=== PATIENT | female | born 1985 | race Caucasian/White ===

== ENCOUNTER 2018-04-13 08:58 | Emergency (ER) | payer BC ==
[2018-04-13 10:07] LABS: Urine Blood 1+ (NEG); Urine Glucose NEGATIVE (NEG); Urine Protein 2+ (NEG)
--- NOTE | 2018-04-13 10:28 | ER ---
Nurse's Notes [facility] Name: Woodrow Pool Age: 32 yrs Sex: Female : 1985 Arrival Date: 04/13/2018 Time: 09:01 Bed 13 Private MD: Elissa Chaudhary Diagnosis: Threatened Presentation: 04/13 09:17 Presenting complaint: Patient states: Lower abdominal cramping and bright red vaginal hb bleeding since this morning. Pt reports she is 11 weeks , , had spotty bleeding at 8 and [address] Chaudhary. Transition of care: patient was not received from another setting of care. Onset of symptoms was April 13, 2018. Risk Assessment: Do you want to hurt yourself or someone else? Patient reports no desire to harm self or others. 09:17 Method Of Arrival: Ambulatory hb 09:17 Acuity: DESHAWN 3 hb 10:00 Initial Sepsis Screen: Does the patient meet any 2 criteria? No. Patient's initial jl7 sepsis screen is negative. Does the patient have a suspected source of infection? No. Patient's initial sepsis screen is negative. Care prior to arrival: None. 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 - Social history:: Smoking status: Patient/guardian denies using tobacco. - Ebola Screening: : No symptoms or risks identified at this time. Screenin:00 Abuse screen: Denies threats or abuse. Denies injuries from another. Nutritional jl7 screening: No deficits noted. Tuberculosis screening: No symptoms or risk factors identified. Fall Risk None identified. Assessment: 10:00 Obstetrical Assessment: Patient reports abdominal cramping. jl7 10:02 General: Appears uncomfortable, Behavior is cooperative, appropriate for age, anxious. jl7 Pain: Complains of pain in suprapubic area, right lower quadrant and left lower quadrant Pain does not radiate. Pain currently is 4 out of 10 on a pain scale. Quality of pain is described as crampy, Pain began 2-3 days ago. Is continuous. Neuro: Level of Consciousness is awake, alert, obeys commands, Oriented to person, place, time, situation. Cardiovascular: Patient's skin is warm and dry. Respiratory: Airway is patent Respiratory effort is even, unlabored, Respiratory pattern is regular, symmetrical. GI: No signs and/or symptoms were reported involving the gastrointestinal system. : Urine is clear, Reports vaginal bleeding that is bright red. Vital Signs: 09:19 BP 127 / 99; Pulse 110; Resp 16; Pulse Ox 100% on R/A; Pain 0/10; hb 10:45 BP 125 / 95; Pulse 104; Resp 16; Pulse Ox 100% ; jl7 ED Course: 09:01 Patient arrived in ED. as 09:01 Elissa Chaudhary MD is Private Physician. as 09:07 Emily Leon FNP-C [facility]. snw 09:07 Quintin Easley MD is Attending Physician. snw 09:19 Triage completed. hb 09:33 Rosy Frye, RN is Primary Nurse. jl7 09:46 Radiology exam delayed due to lab results not completed at this time. test aa4 not completed at this time. 10:00 Patient has correct armband on for positive identification. Bed in low position. Call jl7 light in reach. Side rails up X 1. Pulse ox on. NIBP on. 10:17 Ultrasound completed. aa4 10:21 Elissa Chaudhary MD is Referral Physician. snw 10:38 1St Trimest Single 1St Fetus In Process Unspecified. EDMS 10:44 Arm band placed on right wrist. jl7 10:48 No provider procedures requiring assistance completed. Patient did not have IV access jl7 during this emergency room visit. Administered Medications: No medications were administered Point of Care Testing: Urine : 10:48 hCG Reading: Positive; Control Reading: Negative; jl7 Outcome: 10:27 Discharge ordered by . snw 10:48 Discharged to home ambulatory. jl7 10:48 Condition: stable 10:48 Discharge instructions given to patient, family, Instructed on discharge instructions, follow up and referral plans. medication usage, Demonstrated understanding of instructions, follow-up care, medications, Prescriptions given X 1. 10:49 Patient left the ED. jl7 Signatures: Dispatcher [employer] EDOH Emily Leon FNP-C SHIPFITTERS SUPERVISOR-Ana Maldonado Amanda aa4 Antonia Felder, RN RN hb Rosy Frye RN RN jl7 Corrections: (The following items were deleted from the chart) 10:38 10:17 In radiology for Transvaginal Ob+US.RAD.KANDACE. EDMS EDMS
--- NOTE | 2018-04-13 10:28 | EDPHYS ---
Physician Documentation [facility] Name: Woodrow Pool Age: 32 yrs Sex: Female : 1985 Arrival Date: 04/13/2018 Time: 09:01 Bed 13 Private MD: Elissa Chaudhary ED Physician Quintin Easley HPI: 04/13 09:41 This 32 yrs old Female presents to ER via Ambulatory with complaints of snw Vaginal Bleeding, + Preg <12wks. 09:41 The patient presents with vaginal bleeding that is light, "bright red" when I wiped. snw Onset: The symptoms/episode began/occurred suddenly, this morning. Associated signs and symptoms: Pertinent positives: vaginal bleeding. Severity of symptoms: At their worst the symptoms were mild. The patient is sexually active, reportedly has a single partner. The patient has experienced a previous episode. The patient has been recently seen by a physician: Dr. Jeffries with similar presenting complaints, +IUP with HR in 140's, Rh +,. FINAL INSPECTOR PAPER: 09:41 1 snw Historical: - Allergies: 09:19 No Known Allergies; hb - Home Meds: 09:19 Lovenox 40 mg/0.4 mL Sub-Q syrg once daily [Active]; hb - Immunization history:: Adult Immunizations unknown. - Social history:: Smoking status: Patient/guardian denies using tobacco. - Ebola Screening: : No symptoms or risks identified at this time. ROS: 09:40 Constitutional: Negative for fever, chills, and weight loss, Eyes: Negative for injury, snw pain, redness, and discharge, ENT: Negative for injury, pain, and discharge, Neck: Negative for injury, pain, and swelling, Cardiovascular: Negative for chest pain, palpitations, and edema, Respiratory: Negative for shortness of breath, cough, wheezing, and pleuritic chest pain, Abdomen/GI: Negative for abdominal pain, nausea, vomiting, diarrhea, and constipation, Back: Negative for injury and pain, MS/Extremity: Negative for injury and deformity, Skin: Negative for injury, rash, and discoloration, Neuro: Negative for headache, weakness, numbness, tingling, and seizure. 09:40 : Positive for vaginal bleeding. 09:40 Psych: Positive for anxiety. Exam: 09:39 Constitutional: This is a well developed, well nourished patient who is awake, alert, snw and in no acute distress. Head/Face: Normocephalic, atraumatic. Eyes: Pupils equal round and reactive to light, extra-ocular motions intact. Lids and lashes normal. Conjunctiva and sclera are non-icteric and not injected. Cornea within normal limits. Periorbital areas with no swelling, redness, or edema. ENT: Nares patent. No nasal discharge, no septal abnormalities noted. Tympanic membranes are normal and external auditory canals are clear. Oropharynx with no redness, swelling, or masses, exudates, or evidence of obstruction, uvula midline. Mucous membranes moist. Neck: Trachea midline, no thyromegaly or masses palpated, and no cervical lymphadenopathy. Supple, full range of motion without nuchal rigidity, or vertebral point tenderness. No Meningismus. Chest/axilla: Normal chest wall appearance and motion. Nontender with no deformity. No lesions are appreciated. Cardiovascular: Tachycardic rate and rhythm with a normal S1 and S2. No gallops, murmurs, or rubs. Normal PMI, no JVD. No pulse deficits. Respiratory: Lungs have equal breath sounds bilaterally, clear to auscultation and percussion. No rales, rhonchi or wheezes noted. No increased work of breathing, no retractions or nasal flaring. Abdomen/GI: Soft, non-tender, with normal bowel sounds. No distension or tympany. No guarding or rebound. No evidence of tenderness throughout. Back: No spinal tenderness. No costovertebral tenderness. Full range of motion. Skin: Warm, dry with normal turgor. Normal color with no rashes, no lesions, and no evidence of cellulitis. MS/ Extremity: Pulses equal, no cyanosis. Neurovascular intact. Full, normal range of motion. Neuro: Awake and alert, GCS 15, oriented to person, place, time, and situation. Cranial nerves II-XII grossly intact. Motor strength 5/5 in all extremities. Sensory grossly intact. Cerebellar exam normal. Normal gait. Vital Signs: 09:19 BP 127 / 99; Pulse 110; Resp 16; Pulse Ox 100% on R/A; Pain 0/10; hb 10:45 BP 125 / 95; Pulse 104; Resp 16; Pulse Ox 100% ; jl7 MDM: 09:14 Patient medically screened. snw 09:54 Data reviewed: vital signs, nurses notes. Physician consultation: Elissa Chaudhary MD was snw called at 09:55, was contacted at 09:55, regarding Dr. Chaudhary called, pt does not need labs, US ordered. Pt was seen Wednesday, + IUP with HR 140's, . 04/13 10:03 Order name: Urine Dipstick--Ancillary (enter results); Complete Time: 10:12 bd 04/13 10:04 Order name: Urine --Ancillary (enter results); Complete Time: 10:12 bd 04/13 09:07 Order name: Urine Test (obtain specimen); Complete Time: 10:33 snw 04/13 09:07 Order name: IV Saline Lock; Complete Time: 10:33 snw 04/13 09:07 Order name: Labs collected and sent; Complete Time: 10:33 snw 04/13 09:07 Order name: NPO; Complete Time: 10:33 snw 04/13 09:07 Order name: Urine Dipstick-Ancillary (obtain specimen); Complete Time: 10:33 snw 04/13 10:38 Order name: 1St Trimest Single 1St Fetus; Complete Time: 10:46 EDMS Administered Medications: No medications were administered Point of Care Testing: Urine : 10:48 hCG Reading: Positive; Control Reading: Negative; jl7 Disposition: 04/13/18 10:27 Discharged to Home. Impression: Threatened . - Condition is Stable. - Discharge Instructions: Medicines During , Threatened Miscarriage, Pelvic Rest. - Prescriptions for Vitamin 27- 0.8 mg Oral Tablet - take 1 tablet by ORAL route once daily; 60 tablet. - Medication Reconciliation Form, Thank You Letter, Antibiotic Education, Prescription Opioid Use form. - Follow up: Elissa Chaudhary MD; When: 2 - 3 days; Reason: Recheck today's complaints, Continuance of care, Re-evaluation by your physician. Follow up: Emergency Department; When: As needed; Reason: Worsening of condition. Addendum: 04/15/2018 19:50 Co-signature as Attending Physician, Quintin Easley MD I agree with the assessment and w a plan of care. Signatures: Dispatcher [employer] EDEmily Rodriguez, CHILD CARE ATTENDANT SCHOOL-C CHILD CARE ATTENDANT SCHOOL-Csnw Antonia Felder, CLARITA RN hb Rosy Frye, CLARITA RN jl7 Quintin Easley MD MD wa Corrections: (The following items were deleted from the chart) 04/13 09:40 09:39 Constitutional: This is a well developed, well nourished patient who is awake, snw alert, and in no acute distress. Head/Face: Normocephalic, atraumatic. Eyes: Pupils equal round and reactive to light, extra-ocular motions intact. Lids and lashes normal. Conjunctiva and sclera are non-icteric and not injected. Cornea within normal limits. Periorbital areas with no swelling, redness, or edema. ENT: Nares patent. No nasal discharge, no septal abnormalities noted. Tympanic membranes are normal and external auditory canals are clear. Oropharynx with no redness, swelling, or masses, exudates, or evidence of obstruction, uvula midline. Mucous membranes moist. Neck: Trachea midline, no thyromegaly or masses palpated, and no cervical lymphadenopathy. Supple, full range of motion without nuchal rigidity, or vertebral point tenderness. No Meningismus. Chest/axilla: Normal chest wall appearance and motion. Nontender with no deformity. No lesions are appreciated. Cardiovascular: Regular rate and rhythm with a normal S1 and S2. No gallops, murmurs, or rubs. Normal PMI, no JVD. No pulse deficits. Respiratory: Lungs have equal breath sounds bilaterally, clear to auscultation and percussion. No rales, rhonchi or wheezes noted. No increased work of breathing, no retractions or nasal flaring. Abdomen/GI: Soft, non-tender, with normal bowel sounds. No distension or tympany. No guarding or rebound. No evidence of tenderness throughout. Back: No spinal tenderness. No costovertebral tenderness. Full range of motion. Skin: Warm, dry with normal turgor. Normal color with no rashes, no lesions, and no evidence of cellulitis. MS/ Extremity: Pulses equal, no cyanosis. Neurovascular intact. Full, normal range of motion. Neuro: Awake and alert, GCS 15, oriented to person, place, time, and situation. Cranial nerves II-XII grossly intact. Motor strength 5/5 in all extremities. Sensory grossly intact. Cerebellar exam normal. Normal gait. snw 09:41 09:07 QUANTITATIVE HCG+C.LAB.BRZ ordered. EDMS EDMS 09:41 09:08 ABO/RH TYPING+BB.LAB.BRZ ordered. EDMS EDMS 09:41 09:08 BASIC METABOLIC PANEL+C.LAB.BRZ ordered. EDMS EDMS 09:41 09:08 CBC+H.LAB.BRZ ordered. EDMS EDMS 10:38 09:39 Transvaginal Ob+US.RAD.BRZ ordered. EDMS EDMS 10:49 10:27 04/13/2018 10:27 Discharged to Home. Impression: Threatened . Condition jl7 is Stable. Forms are Medication Reconciliation Form, Thank You Letter, Antibiotic Education, Prescription Opioid Use. Follow up: [facility]; When: 2 - 3 days; Reason: Recheck today's complaints, Continuance of care, Re-evaluation by your physician. Follow up: Emergency Department; When: As needed; Reason: Worsening of condition. snw
--- NOTE | 2018-04-13 10:46 | RAD REPORT ---
EXAM DESCRIPTION: US - 1St Trimest Single 1St Fetus - 04/13/2018 10:38 am CLINICAL HISTORY: , vaginal bleeding. Preliminary findings provided to the referring clinician at the time of the study. COMPARISON: None. FINDINGS: Transabdominal sonography was performed. A single intrauterine gestation is identifiable. Heart rate is 172 BPM. [place]-rump length measurements correspond 12 week 0 day age. No gross an atomic abnormality identifiable. Calculated FABBY is 10/26/2018. Cervical canal appears closed. No cy mabel or other intrauterine abnormality identifiable. Bilateral adnexa assessment showed no solid or cystic mass. Ovaries were not clearly defined. There i s no blood or fluid in the cul-de-sac. IMPRESSION: Single 12 week 0 day IUP with normal heart rate. Calculated FABBY is 10/26/2018 Cervical canal is closed. No hematoma or other intrauterine abnormality. No cul-de-sac or adnexal abnormality.
== END 2018-04-13 10:49 | disposition home or self-care (01) ==
LOC: ER 08:58
DX: O20.0 Threatened abortion (principal); Z3A.00 Weeks of gestation of pregnancy not specified
CPT/HCPCS: 76801; 81003; 81025; 99283

== ENCOUNTER 2018-05-14 05:44 | Emergency (ER) | payer BC ==
[2018-05-14 06:47] LABS: Absolute Lymphocytes (CBC) 1.6 K/uL (0.7-4.9); Absolute Monocytes 0.4 K/uL (0.1-1.3); Absolute Neutrophil 6.4 K/uL (1.8-8.0); Basophils % 0.4 % (0-1.3); Eosinophils % 3.6 % (0-4.4); Hematocrit 37.8 % (36.0-45.0); Lymphocytes % 18.1 % (15.3-44.8); MCH 28.7 pg (27.0-35.0); MCV 84.8 fL (80-100); MPV 10.4 fL (7.6-11.3); Monocytes % 4.3 % (3.3-12.3); RBC Red Blood Cell Count 4.46 M/uL (3.86-4.86)
[2018-05-14 07:14] LABS: BUN Blood Urea Nitrogen 7 mg/dL (7-18); Bicarbonate 26 mmol/L (21-32); Glucose Level 87 mg/dL (74-106); HCG, Quantitative 17271 mIU/mL (1-3); Potassium 3.6 mmol/L (3.5-5.1); Sodium Level 140 mmol/L (136-145)
[2018-05-14 07:22] LABS: Urine Blood 2+ (NEG); Urine Glucose NEGATIVE (NEG); Urine Protein NEGATIVE (NEG); Urine Specific Gravity 1.015 (1.005-1.030)
--- NOTE | 2018-05-14 08:27 | ER ---
Nurse's Notes [facility] Name: Woodrow Pool Age: 32 yrs Sex: Female : 1985 Arrival Date: 05/14/2018 Time: 05:45 Bed 16 Private MD: Diagnosis: 16 weeks gestation of Presentation: 05/14 06:01 Presenting complaint: Patient states: Pt reports she woke up at 0530 this morning and ea noticed she had light cramping and bleeding. Pt reports at 11 weeks she came in for similar symptoms but reports this time the bleeding is more severe. Transition of care: patient was not received from another setting of care. Onset of symptoms was May 14, 2018. Risk Assessment: Do you want to hurt yourself or someone else? Patient reports no desire to harm self or others. Initial Sepsis Screen: Does the patient meet any 2 criteria? No. Patient's initial sepsis screen is negative. Does the patient have a suspected source of infection? No. Patient's initial sepsis screen is negative. Care prior to arrival: None. 06:01 Method Of Arrival: Ambulatory ea 06:01 Acuity: DESHAWN 3 ea Triage Assessment: 06:05 General: Appears uncomfortable, Behavior is calm, cooperative, appropriate for age. ea Pain: Denies pain. EENT: No signs and/or symptoms were reported regarding the EENT system. Neuro: Level of Consciousness is awake, alert, obeys commands, Oriented to person, place, time, situation. Cardiovascular: Heart tones S1 S2 present Patient's skin is warm and dry. Respiratory: Airway is patent Respiratory effort is even, unlabored, Respiratory pattern is regular, symmetrical, Breath sounds are clear bilaterally. GI: No signs and/or symptoms were reported involving the gastrointestinal system. : Reports vaginal bleeding that is moderate flow. Derm: Skin is pink, warm \T\ dry. Musculoskeletal: No signs and/or symptoms reported regarding the musculoskeletal system. LOCK SETTER: 06:07 1, Full Term 0, Premature 0, 0, Living 0 ea 06:07 1, 0, Living 0 kb 06:15 LMP 01/22/2018 kb Historical: - Allergies: 06:04 No Known Allergies; ea - Home Meds: 06:04 Lovenox 40 mg/0.4 mL Sub-Q syrg once daily [Active]; ea - PMHx: 08:03 antiphospholipid syndrome; kb - PSHx: 06:04 hysteroscopy; ea - Immunization history:: Adult Immunizations up to date. - Social history:: Smoking status: Patient/guardian denies using tobacco. - Ebola Screening: : No symptoms or risks identified at this time. Screenin:09 Abuse screen: Denies threats or abuse. Nutritional screening: No deficits noted. ea Tuberculosis screening: No symptoms or risk factors identified. Fall Risk None identified. Assessment: 06:42 Reassessment: Patient and/or family updated on plan of care and expected duration. Pain ea level reassessed. Patient is alert, oriented x 3, equal unlabored respirations, skin warm/dry/pink. heart tones 160. 07:05 General: Appears in no apparent distress. comfortable, Behavior is calm, cooperative. em Pain: Denies pain. Neuro: Level of Consciousness is awake, alert, obeys commands, Oriented to person, place, time, situation. Cardiovascular: Capillary refill < 3 seconds Patient's skin is warm and dry. Respiratory: Airway is patent Respiratory effort is even, unlabored, Respiratory pattern is regular, symmetrical. GI: Patient currently denies nausea, vomiting. : No signs and/or symptoms were reported regarding the genitourinary system. : Reports vaginal bleeding that is since 0530 today. : Denies. Derm: Skin is intact, Skin is pink, warm \T\ dry. Musculoskeletal: Range of motion: intact in all extremities. 08:30 Reassessment: Patient appears in no apparent distress at this time. Patient and/or em family updated on plan of care and expected duration. Pain level reassessed. Patient is alert, oriented x 3, equal unlabored respirations, skin warm/dry/pink. Vital Signs: 06:07 BP 120 / 86; Pulse 101; Resp 18; Temp 98(O); Pulse Ox 98% on R/A; Weight 65.32 kg; ea Height 5 ft. 2 in. (157.48 cm); 07:22 BP 95 / 70; Pulse 79; Resp 18; Pulse Ox 99% on R/A; Pain 0/10; em 08:30 BP 112 / 71; Pulse 73; Resp 18; Pulse Ox 99% on R/A; Pain 0/10; em 06:07 Body Mass Index 26.34 (65.32 kg, 157.48 cm) ED Course: 05:45 Patient arrived in ED. ds1 06:00 Gina Briones FNP-C [facility]. kb 06:00 Sohail Plummer MD is Attending Physician. kb 06:01 Tracie Salinas, RN is Primary Nurse. ea 06:03 Triage completed. ea 06:09 Patient has correct armband on for positive identification. Bed in low position. Call ea light in reach. Side rails up X 1. 06:09 Arm band placed on right wrist. Patient placed in an exam room, on a stretcher, on ea pulse oximetry. 06:50 Inserted saline lock: 20 gauge in right antecubital area, using aseptic technique. em Blood collected. 08:00 Ultrasound completed. Patient tolerated well. sg3 08:00 Notified SOFA INSPECTOR/PA gina bonilla us prelim. sg3 08:26 Elissa Chaudhary MD is Referral Physician. kb 08:30 US OB Complete In Process Unspecified. EDMS 08:50 No provider procedures requiring assistance completed. IV discontinued, intact, em bleeding controlled, No redness/swelling at site. Pressure dressing applied. Administered Medications: No medications were administered Outcome: 08:26 Discharge ordered by MD. kb 08:51 Discharged to home ambulatory, with family. em 08:51 Condition: good 08:51 Discharge instructions given to patient, family, Instructed on discharge instructions, follow up and referral plans. Demonstrated understanding of instructions, follow-up care. 08:52 Patient left the ED. em Signatures: Dispatcher [employer] EDMS Gina Briones FNP-C BROOM STITCHER-Ckb Jabier Magdaleno, SALES REPRESENTATIVE [employer] SALES REPRESENTATIVE [employer] em Lara Jiménez ds1 Tracie Salinas, RN RN Vicenta Lagunas sg3 Corrections: (The following items were deleted from the chart) 08:03 06:04 PMHx: None; ea lewis
--- NOTE | 2018-05-14 08:27 | EDPHYS ---
Physician Documentation [facility] Name: Woodrow Pool Age: 32 yrs Sex: Female : 1985 Arrival Date: 05/14/2018 Time: 05:45 Bed 16 Private MD: ED Physician Sohail Plummer HPI: 05/14 06:07 This 32 yrs old Female presents to ER via Ambulatory with complaints of kb Vaginal Bleeding - 16 Wks Preg. 06:07 The patient presents to the emergency department with vaginal bleeding, that is light. kb The estimated gestational age is 16 weeks. course: care: private OB physician, Dr. Chaudhary, Leakage of Fluid: none appreciated, Ultrasound: the patient had an ultrasound, which was normal, Risk/complications: APS. Previous pregnancies: the patient has never been . Associated signs and symptoms: Pertinent positives: vaginal bleeding, Pertinent negatives: abdominal pain, chest pain, diarrhea, dysuria, fever, frequency, nausea, ruptured membranes, seizure, shortness of breath, vaginal discharge, vomiting. The patient has experienced similar episodes in the past, a few times, but today's symptoms are worse. The patient has been recently seen by a physician: Dr. Chaudhary 1 week(s) ago. Pt states she woke up at 0530 with vaginal bleeding. States the bleeding has lightened up, but still constant. Takes baby aspirin and lovenox (40mg) daily for APS. Saw Dr Chaudhary last week for regular OB checkup. Denies abd pain. . 06:15 Pt had IVF. kb DIRECTOR OF INDUSTRIAL RELATIONS: 06:07 1, Full Term 0, Premature 0, 0, Living 0 ea 06:07 1, 0, Living 0 kb 06:15 LMP 01/22/2018 kb Historical: - Allergies: 06:04 No Known Allergies; ea - Home Meds: 06:04 Lovenox 40 mg/0.4 mL Sub-Q syrg once daily [Active]; ea - PMHx: 08:03 antiphospholipid syndrome; kb - PSHx: 06:04 hysteroscopy; ea - Immunization history:: Adult Immunizations up to date. - Social history:: Smoking status: Patient/guardian denies using tobacco. - Ebola Screening: : No symptoms or risks identified at this time. ROS: 06:07 Constitutional: Negative for fever, chills, and weight loss, Cardiovascular: Negative kb for chest pain, palpitations, and edema, Respiratory: Negative for shortness of breath, cough, wheezing, and pleuritic chest pain, Abdomen/GI: Negative for abdominal pain, nausea, vomiting, diarrhea, and constipation, MS/Extremity: Negative for injury and deformity, Skin: Negative for injury, rash, and discoloration, Neuro: Negative for headache, weakness, numbness, tingling, and seizure. 06:07 : Positive for vaginal bleeding, Negative for urinary symptoms. Exam: 06:07 Constitutional: This is a well developed, well nourished patient who is awake, alert, kb and in no acute distress. Head/Face: Normocephalic, atraumatic. ENT: Nares patent. No nasal discharge, no septal abnormalities noted. Tympanic membranes are normal and external auditory canals are clear. Oropharynx with no redness, swelling, or masses, exudates, or evidence of obstruction, uvula midline. Mucous membranes moist. Neck: Trachea midline, no thyromegaly or masses palpated, and no cervical lymphadenopathy. Supple, full range of motion without nuchal rigidity, or vertebral point tenderness. No Meningismus. Chest/axilla: Normal chest wall appearance and motion. Nontender with no deformity. No lesions are appreciated. Cardiovascular: Regular rate and rhythm with a normal S1 and S2. No gallops, murmurs, or rubs. Normal PMI, no JVD. No pulse deficits. Respiratory: Lungs have equal breath sounds bilaterally, clear to auscultation and percussion. No rales, rhonchi or wheezes noted. No increased work of breathing, no retractions or nasal flaring. Abdomen/GI: Soft, non-tender, with normal bowel sounds. No distension or tympany. No guarding or rebound. No evidence of tenderness throughout. Skin: Warm, dry with normal turgor. Normal color with no rashes, no lesions, and no evidence of cellulitis. MS/ Extremity: Pulses equal, no cyanosis. Neurovascular intact. Full, normal range of motion. Neuro: Awake and alert, GCS 15, oriented to person, place, time, and situation. Cranial nerves II-XII grossly intact. Motor strength 5/5 in all extremities. Sensory grossly intact. Cerebellar exam normal. Normal gait. Vital Signs: 06:07 BP 120 / 86; Pulse 101; Resp 18; Temp 98(O); Pulse Ox 98% on R/A; Weight 65.32 kg; ea Height 5 ft. 2 in. (157.48 cm); 07:22 BP 95 / 70; Pulse 79; Resp 18; Pulse Ox 99% on R/A; Pain 0/10; em 08:30 BP 112 / 71; Pulse 73; Resp 18; Pulse Ox 99% on R/A; Pain 0/10; em 06:07 Body Mass Index 26.34 (65.32 kg, 157.48 cm) ea MDM: 06:00 Patient medically screened. kb 06:07 Data reviewed: vital signs, nurses notes. Data interpreted: Pulse oximetry: on room air kb is 100 %. Interpretation: normal. 08:17 Counseling: I had a detailed discussion with the patient and/or guardian regarding: the kb historical points, exam findings, and any diagnostic results supporting the discharge/admit diagnosis, lab results, radiology results, the need for outpatient follow up, an OB/Gyne specialist, to return to the emergency department if symptoms worsen or persist or if there are any questions or concerns that arise at home. 05/14 06:00 Order name: Quantitative Hcg; Complete Time: 07:15 kb 05/14 06:00 Order name: Abo/rh Typing; Complete Time: 08:48 kb 05/14 06:00 Order name: Basic Metabolic Panel; Complete Time: 07:15 kb 05/14 06:00 Order name: CBC with Diff; Complete Time: 06:51 kb 05/14 06:54 Order name: Urine Dipstick--Ancillary (enter results); Complete Time: 07:23 rg2 05/14 06:54 Order name: Urine --Ancillary (enter results); Complete Time: 07:23 rg2 05/14 06:00 Order name: Urine Test (obtain specimen); Complete Time: 07:14 kb 05/14 06:00 Order name: IV Saline Lock; Complete Time: 07:13 kb 05/14 06:00 Order name: Labs collected and sent; Complete Time: 07:13 kb 08 06:00 Order name: NPO; Complete Time: 07:14 kb 05/14 06:00 Order name: Urine Dipstick-Ancillary (obtain specimen); Complete Time: 07:14 kb 05/14 06:10 Order name: FHT's; Complete Time: 06:42 kb 05/14 06:52 Order name: US OB Complete kb Administered Medications: No medications were administered Disposition: 05/14/18 08:26 Discharged to Home. Impression: 16 weeks gestation of . - Condition is Stable. - Discharge Instructions: Second Trimester of , [id number]. - Medication Reconciliation Form, Thank You Letter, Antibiotic Education, Prescription Opioid Use form. - Follow up: Emergency Department; When: As needed; Reason: Worsening of condition. Follow up: Private Physician; When: 2 - 3 days; Reason: Recheck today's complaints, Continuance of care, Re-evaluation by your physician. Follow up: Elissa Chaudhary MD; When: 1 - 2 days; Reason: Recheck today's complaints, Continuance of care, Re-evaluation by your physician. Addendum: 05/16/2018 09:12 Co-signature as Attending Physician, Sohail Plummer MD I agree with the assessment and c valenzuela plan of care. Signatures: Dispatcher [employer] Gina Reyes, ROVING TECHNICIAN-C ROVING TECHNICIAN-Ckb Sohail Plummer MD MD cha Munoz, Edgar, DISK SANDER DISK SANDER em Tracie Salinas RN RN ea Corrections: (The following items were deleted from the chart) 05/14 08:03 06:04 PMHx: None; ea kb 08:26 08:26 05/14/2018 08:26 Discharged to Home. Impression: 16 weeks gestation of . kb Condition is Stable. Forms are Medication Reconciliation Form, Thank You Letter, Antibiotic Education, Prescription Opioid Use. Follow up: Emergency Department; When: As needed; Reason: Worsening of condition. Follow up: Private Physician; When: 2 - 3 days; Reason: Recheck today's complaints, Continuance of care, Re-evaluation by your physician. kb 08:52 08:26 05/14/2018 08:26 Discharged to Home. Impression: 16 weeks gestation of . em Condition is Stable. Discharge Instructions: Second Trimester of , [id number]. Forms are Medication Reconciliation Form, Thank You Letter, Antibiotic Education, Prescription Opioid Use. Follow up: Emergency Department; When: As needed; Reason: Worsening of condition. Follow up: Private Physician; When: 2 - 3 days; Reason: Recheck today's complaints, Continuance of care, Re-evaluation by your physician. Follow up: Elissa Rekhi; When: 1 - 2 days; Reason: Recheck today's complaints, Continuance of care, Re-evaluation by your physician. kb
--- NOTE | 2018-05-14 12:04 | RAD REPORT ---
EXAM DESCRIPTION: US - OB Complete - 05/14/2018 8:30 am CLINICAL HISTORY: with vaginal bleeding COMPARISON: None FINDINGS: A single live intrauterine is breech presentation. The placenta is posterior. Th e tip of the placenta lies 1.8 centimeters from the cervix. The amniotic fluid is within normal limit s. Cardiac activity 149 beats per minute. The cervix 3.3 centimeters. BPD 3.3 centimeters 16 weeks 3 days HC 12.7 centimeters 16 weeks 3 days AC 10.5 centimeters 16 weeks 3 days FL 2.2 centimeter 16 weeks 4 days survey was not obtained secondary to the early gestation. IMPRESSION: A single live into in breech presentation The estimated gestational age 16 weeks 3 days FABBY 10/26/2018 Low lying placenta If a survey is desired it should be performed in approximately 2 weeks
== END 2018-05-14 08:52 | disposition home or self-care (01) ==
LOC: ER 05:44
DX: O20.9 Hemorrhage in early pregnancy, unspecified (principal); Z3A.16 16 weeks gestation of pregnancy; D68.61 Antiphospholipid syndrome
CPT/HCPCS: 36415; 76805; 80048; 81003; 81025; 84702; 85025; 86900; 86901; 99284

== ENCOUNTER 2018-10-11 15:07 | Inpatient (IN) | payer BC ==
[2018-10-12] MEDS ORDERED: PROMETHAZINE 25 MG/ML VIAL IV PRN (08:01)
[2018-10-12] MEDS ORDERED: BUTORPHANOL 1 MG/ML INJ IV PRN (08:01)
[2018-10-12] MEDS ORDERED: CARBOPROST TROME 250 MCG/ML IM PRN (08:01)
[2018-10-12] MEDS ORDERED: METHYLERGONOVINE 0.2MG/ML AMP IM PRN (08:01)
[2018-10-12] MEDS ORDERED: Ringers Lactate 1,000 ML IV PRN (08:01)
[2018-10-12 08:25] LABS: RPR Titer ND
[2018-10-12] MEDS ORDERED: OXYTOCIN/LR 20 UNIT/1,000 ML BAG IV ONE (08:25)
[2018-10-12 08:28] LABS: Absolute Lymphocytes (CBC) 1.4 K/uL (0.7-4.9); Absolute Monocytes 0.5 K/uL (0.1-1.3); Absolute Neutrophil 7.7 K/uL (1.8-8.0); Basophils % 0.3 % (0-1.3); Eosinophils % 1.5 % (0-4.4); Hematocrit 35.9 % (36.0-45.0); Lymphocytes % 14.5 % (15.3-44.8); MPV 10.4 fL (7.6-11.3); Monocytes % 5.2 % (3.3-12.3); RBC Red Blood Cell Count 4.24 M/uL (3.86-4.86)
[2018-10-12 08:36] LABS: Urine Appearance CLEAR; Urine Bilirubin NEGATIVE (NEG); Urine Blood NEGATIVE (NEG); Urine Color YELLOW; Urine Glucose NEGATIVE (NEG); Urine Protein NEGATIVE (NEG); Urine Specific Gravity 1.015 (1.005-1.030); Urine Urobilinogen 0.2 mg/dL (0.2-1.0)
[2018-10-12 08:46] LABS: Urine Microscopic Reflex NO UMIC
[2018-10-12] MEDS ORDERED: OXYTOCIN/LR 20 UNIT/1,000 ML BAG IV SCH (09:00)
[2018-10-12] MEDS ORDERED: Ringers Lactate 1,000 ML IV SCH (09:00)
[2018-10-12] MEDS ORDERED: ROPIVACAINE HCL 100 ML IV PRN (12:28)
[2018-10-12] MEDS ORDERED: ROPIVACAINE HCL 0.2% 20ML AMP IV ONE (12:30)
[2018-10-12] MEDS ORDERED: FENTANYL CITR 100 MCG/2 ML IV ONE (12:30)
[2018-10-12 14:03] VITALS: BMI 32.3
[2018-10-12] MEDS ORDERED: FAMOTIDINE 20 MG/2 ML VIAL IV ONE (20:27)
[2018-10-12] MEDS ORDERED: CEFAZOLIN 2 GM in NA CHLORIDE 0.9% 100 ML IVPB ONE (21:06)
[2018-10-12] MEDS ORDERED: NA CIT/CITRIC AC 30 ML ORAL UDC PO ONE (21:06)
[2018-10-12] MEDS ORDERED: METHYLERGONOVINE 0.2MG/ML AMP IM ONE (21:30)
[2018-10-12] MEDS ORDERED: CARBOPROST TROME 250 MCG/ML IM ONE (21:30)
[2018-10-12] MEDS ORDERED: NA CIT/CITRIC AC 30 ML ORAL UDC ONE (21:30)
[2018-10-12] MEDS ORDERED: CEFAZOLIN/SWI 1gm 0 GM/0 ML SYR ONE (21:31)
[2018-10-12] MEDS ORDERED: CEFAZOLIN/SWI 2gm 2 GM/20 ML SYR ONE (21:32)
[2018-10-12] MEDS ORDERED: ONDANSETRON 4 MG (ODT) TAB PO PRN (21:35)
[2018-10-12] MEDS ORDERED: BISACODYL 10 MG RECTAL SUPP RECT PRN (21:35)
[2018-10-12] MEDS ORDERED: Oxycodone HCl/Acetaminophen 1 TAB TAB PO PRN (21:35)
[2018-10-12] MEDS ORDERED: METHYLERGONOVINE 0.2 MG TAB PO PRN (21:35)
[2018-10-12] MEDS ORDERED: DOCUSATE NA/SENNA CONC 1 TAB PO PRN (21:35)
[2018-10-12] MEDS ORDERED: ACETAMINOPHEN 500 MG TAB PO PRN (21:35)
[2018-10-12] MEDS ORDERED: IBUPROFEN 400 MG TAB PO PRN (21:36)
[2018-10-12] MEDS ORDERED: MORPHINE SULFATE/PF 1 MG/ML (10 ML AMP) ONE (21:42)
[2018-10-12] MEDS ORDERED: OXYTOCIN 10 UNIT/ML ML IV ONE (21:43)
[2018-10-12] MEDS ORDERED: LIDOCAINE 2% W/EPI 1:200,000 MPF 20 ML VIAL IM ONE (21:44)
[2018-10-12] MEDS ORDERED: METOCLOPRAMIDE 10 MG/2mL INJ IV ONE (22:00)
[2018-10-12 22:15] LABS: RPR (Rapid Plasma Reagin) NON-REACT (NON-REACT)
[2018-10-12] MEDS ORDERED: MIDAZOLAM HCL 2 MG/2 ML INJ ONE (22:31)
--- NOTE | 2018-10-12 22:51 | P.OP ---
Quality Improvement Coordinator: Eh Carmen Preoperative diagnosis: 37+ weeks high risk , arrest of labor Postoperative diagnosis: same and cephlopelvic disproportion Primary procedure: Primary low transverse section Secondary procedure: none Anesthesia: Epidural Estimated blood loss: 800cc Specimen: cord blood, placenta Findings: Male cephalic, APGARS 8/9, weight 7lb 7 oz Operative Technique: The patient was taken to the operating room where her epidural anesthesia was reinforced. She was prepped and draped in the usual fashion for the procedure. After adequate epidural level was confirmed, the scalpel was utilized to make a transverse incision in the patient's lower abdominal wall. This incision was carried down to the level of the fascia, which was also transversely incised. After adequate hemostasis, the fascia was bluntly and sharply up from the underlying rectus muscle. The rectus muscle was in midline exposing the peritoneum. The peritoneum was carefully grasped and elevated with hemostats. It was entered in an up and down fashion with Metzenbaum scissors. The bladder blade was placed in the lower pole of the incision to protect the bladder. The uterus was palpated and inspected. A thin lower uterine segment was noted. The vertex presentation was confirmed. The scalpel was then utilized to make a transverse or Cid incision in the lower uterine wall. The was then delivered without difficulty in PALLAVI presentation. Nose and mouth were suctioned with a suction bulb. The cord was clamped and cut and baby was delivered off the field to the nurse. The placenta was manually extracted from the endometrial cavity. A Sewell clamps were placed around the margin of the uterine incision for hemostasis. The uterus was delivered up into the operative field. The endometrial cavity was swiped clean with a moist laparotomy pad. The uterine incision was then closed in a two-layered fashion with 0 Vicryl suture, the first layer interlocking and the second layer imbricating. Two additional stitches of 0 Vicryl suture were utilized for hemostasis. The uterine incision was noted to be hemostatic upon closure. Bladder flap was reapproximated with 3 O Vicryl. The uterus was rotated forward, normal tubes and ovaries were noted on both sides. The uterus was then returned to its normal position of the abdominal cavity. The sponge and instrument count was performed for the first time at this point and found to be correct. A final check of the uterine incision confirmed hemostasis. The rectus muscle was stabilized across the midline with two simple stitches of 0 Vicryl suture. The subcutaneous tissue was then exposed , and the fascia closed with two running lengths of 0 Vicryl suture, beginning in lateral margins and overlapping the midline. The subcutaneous tissue was then irrigated and inspected. No active bleeding was noted. It was closed with a running length of 2-0 plain catgut suture. The skin was then approximated with 3 O Vicryl on a Edward needle. The incision was cleansed and sterilely dressed. The patient was transferred to the recovery room in stable condition. The estimated blood loss through the procedure was 800 mL. The sponge and instrument counts were performed two more times during closure and found to be correct each time. Complications: None Drain(s): Urinary catheter Transferred to: Recovery Room Condition: Good
[2018-10-13] MEDS: KETOROLAC 30 MG/ML INJ IV PRN ×2 (01:50→08:55)
[2018-10-13 07:50] LABS: Absolute Lymphocytes (CBC) 1.1 K/uL (0.7-4.9); Absolute Monocytes 0.9 K/uL (0.1-1.3); Absolute Neutrophil 11.1 K/uL (1.8-8.0); Basophils % 0.3 % (0-1.3); Eosinophils % 0.2 % (0-4.4); Hematocrit 26.9 % (36.0-45.0); MPV 10.1 fL (7.6-11.3); Monocytes % 7.2 % (3.3-12.3); RBC Red Blood Cell Count 3.16 M/uL (3.86-4.86)
[2018-10-13] MEDS ORDERED: IBUPROFEN 200 MG TAB PO ONE (15:18)
[2018-10-13] MEDS ORDERED: IBUPROFEN 200 MG TAB PO PRN (17:53)
[2018-10-13] MEDS ORDERED: FAMOTIDINE 20 MG/2 ML VIAL IV ONE (20:00)
--- NOTE | 2018-10-13 22:16 | P.PN ---
Date of Service: 10/13/18 The patient is postop day 1 from a primary section. She is doing well. She is tolerating diet. Her pain is well controlled. She is afebrile. She has no complaints today she is bonding well with the baby and is breast- feeding. She states she does feel tired but denies syncope. Vital sign stable Selected Entries 10/13/18 10/13/18 08:00 08:55 Temperature 97.3 F Pulse Rate 80 Respiratory 18 Rate Blood Pressure 101/61 Pain Level 3 Laboratory Tests 10/12/18 10/13/18 10/13/18 07:55 07:04 09:56 WBC 9.9 13.2 H D Hgb 11.7 L 8.9 L D Hct 35.9 L 26.9 L D 27.7 L Plt Count 167 125 L D General: Resting in bed no distress Head and neck: Normocephalic atraumatic, supple Respiratory: Symmetric nonlabored breathing Abdomen: Soft, mildly distended, mildly tender. Incision clean dry and intact Bilateral lower extremities: No clubbing cyanosis or edema. Assessment and plan patient is postop day 1 after repeat section she is doing well. 1. s/p primary section Pain is well controlled. Discontinue IV discontinue Santizo catheter. Encourage patient to ambulate. Possible discharge home tomorrow. 2. postoperative anemia Currently stable. Continue vitamins and iron. Follow up 3. Discharge - prescription for tylenol 3 given; likely d/c home in 24 - 48 hours.
[2018-10-13] MEDS: Oxycodone HCl/Acetaminophen 1 TAB TAB PO PRN (23:02)
[2018-10-14] MEDS: Oxycodone HCl/Acetaminophen 1 TAB TAB PO PRN ×3 (04:45→12:32)
[2018-10-14] MEDS ORDERED: FERROUS SULFATE 325 MG TAB PO SCH (09:00)
[2018-10-14] MEDS ORDERED: PRENATAL VITAMIN PO SCH (09:00)
[2018-10-14 13:37] VITALS: BP 119/74; TEMP 98
[2018-10-14 22:04] LABS: HBsAG Nonreactive (Nonreactive)
--- NOTE | 2018-10-15 05:47 | DS ---
Date of Discharge: 10/14/2018 A 33-year-old female, high-risk , seen by Dr. Chaudhary and in consultation with Dr. Pond, high- risk intern, was delivered by section. Noted to have uterine hypotonus. Blood count th ough postoperatively has stabilized. The patient is ambulating, voiding. Lochia is normal. She has no post spinal block problems and is not symptomatic. She is waiting for the baby to be circumcised . Once that occurs, she will be dismissed. Over the weekend, if she has any problems, she knows to call labor and delivery. We have given her phone number. She will call Dr. Chaudhary's office this morn ing and arrange an appointment for followup visit next week in Dr. Chaudhary's office. She knows that ov er the weekend if she has a fever of 100 degrees or more, severe pain, heavy bleeding, or any other t ype of problems, she is to call Labor and delivery for help. She has had her Tdap immunization. Final Diagnoses: Intrauterine gestation, 37 plus weeks. Primary section. Spinal block ane sthesia. Maternal uterine hypotonus. Anemia being treated. LIZBETH/JANEL Voice ID: [id number] Report ID: [id number]
== END 2018-10-14 13:10 | disposition home or self-care (01) | DRG 787 ==
LOC: 2ND-WC 10-12 07:00
PROVIDERS: ADMIT Student in an Organized Health Care Education/Training Program; ATTEND Student in an Organized Health Care Education/Training Program
PROC: 10D00Z1 Extraction of Products of Conception, Low, Open Approach (ICD-10-PCS; principal; 2018-10-12 22:00)
DX: O65.4 Obstructed labor due to fetopelvic disproportion, unspecified (principal); D62 Acute posthemorrhagic anemia; O99.12 Other diseases of the blood and blood-forming organs and certain disorders involving the immune mechanism complicating childbirth; D68.61 Antiphospholipid syndrome; O99.02 Anemia complicating childbirth; O62.2 Other uterine inertia; O43.123 Velamentous insertion of umbilical cord, third trimester; Z3A.37 37 weeks gestation of pregnancy; Z37.0 Single live birth
CPT/HCPCS: 36415; 81003; 85014; 85025; 86592; 86850; 86900; 86901; 87340; 88307; J0690; J2210; J2250; J2590; J2765; J2795

== ENCOUNTER 2018-10-23 11:30 | Observation (INO) | payer BC ==
[2018-10-23 12:08] LABS: Absolute Lymphocytes (CBC) 1.5 K/uL (0.7-4.9); Absolute Monocytes 0.5 K/uL (0.1-1.3); Absolute Neutrophil 7.4 K/uL (1.8-8.0); Basophils % 0.6 % (0-1.3); Eosinophils % 0.8 % (0-4.4); Hematocrit 33.2 % (36.0-45.0); Lymphocytes % 15.3 % (15.3-44.8); MPV 8.5 fL (7.6-11.3); Monocytes % 5.4 % (3.3-12.3); RBC Red Blood Cell Count 3.94 M/uL (3.86-4.86)
[2018-10-23 12:25] LABS: Potassium 3.7 mmol/L (3.5-5.1)
[2018-10-23] MEDS ORDERED: NA CHLORIDE 0.9% 2,000 ML ONE (12:26)
[2018-10-23] MEDS ORDERED: ONDANSETRON 4 MG/2 ML VIAL ONE ×2 (13:24→15:22)
[2018-10-23] MEDS ORDERED: FENTANYL CITR 100 MCG/2 ML ONE ×2 (13:24→15:20)
--- NOTE | 2018-10-23 13:24 | ER ---
Nurse's Notes [facility] Name: Woodrow Pool Age: 33 yrs Sex: Female : 1985 Arrival Date: 10/23/2018 Time: 11:33 Bed 16 Private MD: Diagnosis: Abnormal uterine and vaginal bleeding, unspecified Presentation: 10/23 11:35 Presenting complaint: Patient states: "I had a on the 16th and I've been aj1 bleeding really heavily all morning" Reports bright red vaginal bleeding. Reports dizziness, nausea. Denies SOB, palpitations. Transition of care: patient was not received from another setting of care. Onset of symptoms was October 23, 2018. Risk Assessment: Do you want to hurt yourself or someone else? Patient reports no desire to harm self or others. Initial Sepsis Screen: Does the patient meet any 2 criteria? No. Patient's initial sepsis screen is negative. Does the patient have a suspected source of infection? No. Patient's initial sepsis screen is negative. Initial Sepsis Screen: Does the patient meet any 2 criteria? HR > 90 bpm. Care prior to arrival: None. 11:35 Method Of Arrival: Ambulatory aj1 11:35 Acuity: DESHAWN 3 aj1 Triage Assessment: 11:37 General: Appears in no apparent distress. comfortable, Behavior is calm, cooperative, aj1 appropriate for age. Pain: Complains of pain in right lower quadrant and left lower quadrant Pain currently is 7 out of 10 on a pain scale. Quality of pain is described as crampy. Neuro: Level of Consciousness is awake, alert, obeys commands. Cardiovascular: Patient's skin is warm and dry. Respiratory: Airway is patent Respiratory effort is even, unlabored, Respiratory pattern is regular, symmetrical. : Reports vaginal bleeding that is bright red, heavy flow. ASSOCIATE RESEARCH SCIENTIST: 11:37 LMP N/A - Recent aj1 Historical: - Allergies: 11:37 No Known Allergies; aj1 - Home Meds: 11:37 aspirin 81 mg Oral chew 1 tab once daily [Active]; aj1 - PMHx: 11:37 antiphospholipid syndrome; aj1 - PSHx: 11:37 ; aj1 - Immunization history:: Flu vaccine is up to date. - Social history:: Smoking status: Patient/guardian denies using tobacco. - Ebola Screening: : Patient denies travel to an Ebola-affected area in the 21 days before illness onset. Screenin:42 Abuse screen: Denies threats or abuse. Nutritional screening: No deficits noted. rb1 Tuberculosis screening: No symptoms or risk factors identified. Fall Risk None identified. Assessment: 11:42 General: Appears distressed, Behavior is anxious, Denies fever. General: Pt. had a rb1 on 10/12/2018 and is bleeding bright red blood with heavy flow and clots. Pt. is using 3 pads per hour.. Neuro: Level of Consciousness is awake, alert, obeys commands, Oriented to person, place, time, situation. Neuro: Reports dizziness, weakness. Cardiovascular: Capillary refill < 3 seconds is brisk in bilateral fingers. Respiratory: Airway is patent Respiratory effort is even, unlabored, Respiratory pattern is regular, symmetrical. GI: Reports nausea. : Reports vaginal bleeding that is bright red, with clots, heavy flow. Derm: Skin is dry, Skin is normal, Skin temperature is warm. Musculoskeletal: Range of motion: intact in all extremities. 12:40 Reassessment: Patient appears in no apparent distress at this time. No changes from rb1 previously documented assessment. Pt. continues to have heavy bleeding. 13:05 Reassessment: Dr. Chaudhary is at bedside. rb1 13:41 Reassessment: Patient appears in no apparent distress at this time. Patient and/or rb1 family updated on plan of care and expected duration. Pain level reassessed. Patient is alert, oriented x 3, equal unlabored respirations, skin warm/dry/pink. at bedside Patient denies pain at this time. 14:40 Reassessment: Patient appears in no apparent distress at this time. Patient and/or rb1 family updated on plan of care and expected duration. Pain level reassessed. Patient is alert, oriented x 3, equal unlabored respirations, skin warm/dry/pink. 15:14 Reassessment: Pt c/o pain 10/10 and nausea, AUTOMATION MACHINE OPERATOR Gina notified, Fentanyl and Zofran hb administered as ordered. 15:40 Reassessment: Patient appears in no apparent distress at this time. Patient and/or rb1 family updated on plan of care and expected duration. Pain level reassessed. Patient is alert, oriented x 3, equal unlabored respirations, skin warm/dry/pink. at bedside. 16:00 Reassessment: Called report to CLARITA Zacarias. Information from the SBAR was given. All rb1 questions asked and answered. Vital Signs: 11:37 BP 114 / 83; Pulse 97; Resp 20; Temp 97.8; Pulse Ox 98% on R/A; Weight 69.85 kg (R); aj1 Height 5 ft. 2 in. (157.48 cm) (R); Pain 7/10; 12:08 BP 93 / 77 Supine; Pulse 80; Pulse Ox 100% ; rb1 12:10 BP 97 / 72 Sitting; Pulse 106; Pulse Ox 99% on R/A; rb1 12:12 BP 64 / 45 Standing; Pulse 116; Pulse Ox 100% on R/A; rb1 12:30 BP 103 / 77; Pulse 81; Resp 19; Pulse Ox 100% on R/A; rb1 13:30 BP 117 / 76; Pulse 72; Resp 17; Pulse Ox 100% on R/A; Pain 0/10; rb1 14:15 BP 110 / 68; Pulse 95; Resp 17; Pulse Ox 100% on R/A; rb1 15:00 BP 111 / 67; Pulse 83; Resp 17; Pulse Ox 100% on R/A; rb1 16:00 BP 109 / 64; Pulse 78; Resp 17; Pulse Ox 100% on R/A; rb1 11:37 Body Mass Index 28.17 (69.85 kg, 157.48 cm) aj1 ED Course: 11:33 Patient arrived in ED. mr 11:37 Triage completed. aj1 11:37 Arm band placed on Patient placed in an exam room. aj1 11:39 [facility] Briones [facility]NP-C [facility]. kb 11:39 Eliud Lee MD is Attending Physician. kb 11:42 Patient has correct armband on for positive identification. Placed in gown. Bed in low rb1 position. Call light in reach. Side rails up X 1. Pulse ox on. NIBP on. Warm blanket given. 11:54 Sandra Barrios, CLARITA is Primary Nurse. rb1 11:57 Initial lab(s) drawn, by mn, sent to lab. Inserted saline lock: 20 gauge in right 3 antecubital area, using aseptic technique. Blood collected. 11:57 T\\T\\S collected, blood band applied to patient. 3 13:23 Elissa Chaudhary MD is Hospitalizing Provider. kb 14:00 Ultrasound completed. Patient tolerated well. Notified AUTOMATION MACHINE OPERATOR/PA gina. sg3 16:05 No provider procedures requiring assistance completed. Patient admitted, IV remains in rb1 place. Administered Medications: 12:20 Drug: NS 0.9% 1000 ml Route: IV; Rate: 1000 ml; Site: right antecubital; rb1 13:41 Follow up: IV Status: Completed infusion rb1 12:20 Drug: NS 0.9% 1000 ml Route: IV; Rate: 1000 ml; Site: right antecubital; rb1 13:41 Follow up: IV Status: Completed infusion rb1 13:20 Drug: fentaNYL (PF) 50 mcg Route: IVP; Site: right antecubital; rb1 13:35 Follow up: Response: No adverse reaction; Pain is decreased rb1 13:20 Drug: Zofran 4 mg Route: IVP; Site: right antecubital; rb1 13:35 Follow up: Response: No adverse reaction; Nausea is decreased rb1 13:41 Drug: METHERgine 0.2 mg Route: IM; Site: right deltoid; rb1 13:58 Follow up: Response: No adverse reaction rb1 15:14 Drug: Zofran 4 mg Route: IVP; Site: right antecubital; hb 15:30 Follow up: Response: No adverse reaction; Nausea is decreased rb1 15:14 Drug: fentaNYL (PF) 50 mcg Route: IVP; Site: right antecubital; hb 15:30 Follow up: Response: No adverse reaction; Pain is decreased rb1 Outcome: 13:23 Decision to Hospitalize by Provider. kb 16:05 Patient left the ED. hb 16:05 Admitted to L \\T\\ D, accompanied by tech, family with patient, via stretcher, room 279, rb1 with chart, Report called to CLARITA Zacarias 16:05 Condition: stable 16:05 Instructed on the need for admit. Signatures: Gina Briones, BATTING MACHINE OPERATOR INSULATION-C BATTING MACHINE OPERATOR INSULATION-Ckb Gail Leal, RN RN [email or web address] Maegan Lozada Rebecca, RN RN rb1 Antonia Felder RN RN Adelina Dahl 3 Vicenta Brown 3
--- NOTE | 2018-10-23 13:24 | EDPHYS ---
Physician Documentation [facility] Name: Woodrow Pool Age: 33 yrs Sex: Female : 1985 Arrival Date: 10/23/2018 Time: 11:33 Bed 16 Private MD: ED Physician Eliud Lee HPI: 10/23 12:25 This 33 yrs old Female presents to ER via Ambulatory with complaints of kb Vaginal Bleeding. 12:25 The patient presents with vaginal bleeding that is heavy. Onset: The symptoms/episode kb began/occurred this morning. Modifying factors: The symptoms are alleviated by nothing, the symptoms are aggravated by nothing. Associated signs and symptoms: Pertinent positives: vaginal bleeding, dizziness, Pertinent negatives: constipation, cramping, diarrhea, dyspareunia, dysuria, fever, hematuria, nausea, urinary frequency, vaginal discharge, vomiting. Severity of symptoms: At their worst the symptoms were moderate, in the emergency department the symptoms are unchanged. The patient has not experienced similar symptoms in the past. The patient has been recently seen by a physician: Dr. Chaudhary. Pt had a on 10/12/18 and today started having heavy vaginal bleeding. States the bleeding had decreased and was very light until this morning. 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 . 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 - Social history:: Smoking status: Patient/guardian denies using tobacco. - Ebola Screening: : Patient denies travel to an Ebola-affected area in the 21 days before illness onset. ROS: 12:23 Constitutional: Negative for fever, chills, and weight loss, Cardiovascular: Negative kb for chest pain, palpitations, and edema, Respiratory: Negative for shortness of breath, cough, wheezing, and pleuritic chest pain, Abdomen/GI: Negative for abdominal pain, nausea, vomiting, diarrhea, and constipation, Back: Negative for injury and pain, MS/Extremity: Negative for injury and deformity, Skin: Negative for injury, rash, and discoloration, Neuro: Negative for headache, weakness, numbness, tingling, and seizure. 12:23 : Positive for vaginal bleeding. Exam: 12:23 Constitutional: This is a well developed, well nourished patient who is awake, alert, kb and in no acute distress. Head/Face: Normocephalic, atraumatic. Neck: Trachea midline, no thyromegaly or masses palpated, and no cervical lymphadenopathy. Supple, full range of motion without nuchal rigidity, or vertebral point tenderness. No Meningismus. Chest/axilla: Normal chest wall appearance and motion. Nontender with no deformity. No lesions are appreciated. Cardiovascular: Regular rate and rhythm with a normal S1 and S2. No gallops, murmurs, or rubs. Normal PMI, no JVD. No pulse deficits. Respiratory: Lungs have equal breath sounds bilaterally, clear to auscultation and percussion. No rales, rhonchi or wheezes noted. No increased work of breathing, no retractions or nasal flaring. Abdomen/GI: Soft, non-tender, with normal bowel sounds. No distension or tympany. No guarding or rebound. No evidence of tenderness throughout. Skin: Warm, dry with normal turgor. Normal color with no rashes, no lesions, and no evidence of cellulitis. MS/ Extremity: Pulses equal, no cyanosis. Neurovascular intact. Full, normal range of motion. Neuro: Awake and alert, GCS 15, oriented to person, place, time, and situation. Cranial nerves II-XII grossly intact. Motor strength 5/5 in all extremities. Sensory grossly intact. Cerebellar exam normal. Normal gait. 12:25 Constitutional: The patient appears pale. kb 13:32 : Pelvic Exam: External exam: is normal, Speculum exam: severe bleeding, blood clots kb in vaginal vault, os that is open. Vital Signs: 11:37 BP 114 / 83; Pulse 97; Resp 20; Temp 97.8; Pulse Ox 98% on R/A; Weight 69.85 kg (R); aj1 Height 5 ft. 2 in. (157.48 cm) (R); Pain 7/10; 12:08 BP 93 / 77 Supine; Pulse 80; Pulse Ox 100% ; rb1 12:10 BP 97 / 72 Sitting; Pulse 106; Pulse Ox 99% on R/A; rb1 12:12 BP 64 / 45 Standing; Pulse 116; Pulse Ox 100% on R/A; rb1 12:30 BP 103 / 77; Pulse 81; Resp 19; Pulse Ox 100% on R/A; rb1 13:30 BP 117 / 76; Pulse 72; Resp 17; Pulse Ox 100% on R/A; Pain 0/10; rb1 14:15 BP 110 / 68; Pulse 95; Resp 17; Pulse Ox 100% on R/A; rb1 15:00 BP 111 / 67; Pulse 83; Resp 17; Pulse Ox 100% on R/A; rb1 16:00 BP 109 / 64; Pulse 78; Resp 17; Pulse Ox 100% on R/A; rb1 11:37 Body Mass Index 28.17 (69.85 kg, 157.48 cm) aj1 MDM: 11:39 Patient medically screened. kb 12:25 Data reviewed: vital signs, nurses notes. Data interpreted: Pulse oximetry: on room air kb is 98 %. Interpretation: normal. 12:44 Counseling: I had a detailed discussion with the patient and/or guardian regarding: the kb historical points, exam findings, and any diagnostic results supporting the discharge/admit diagnosis, lab results, the need for further work-up and treatment in the hospital. 13:17 Physician consultation: Elissa Chaudhary MD in the emergency department to see patient at kb 13:20. 15:53 Physician consultation: Elissa Chaudhary MD was contacted at 15:53, updated on most recent kb H\T\H result. 10/23 11:43 Order name: CBC with Diff; Complete Time: 12:33 kb 10/23 11:43 Order name: Basic Metabolic Panel; Complete Time: 12:28 kb 10/23 11:43 Order name: Type And Screen kb 10/23 15:24 Order name: Hematocrit kb 10/23 15:24 Order name: Hemoglobin kb 10/23 15:45 Order name: Hemoglobin; Complete Time: 15:49 EDMS 10/23 12:48 Order name: US Transvaginal Study (Probe) kb 10/23 15:01 Order name: US; Complete Time: 15:02 EDMS 10/23 15:45 Order name: Hematocrit; Complete Time: 15:49 EDMS 01/27 11:43 Order name: Orthostatics; Complete Time: 13:00 kb Administered Medications: 12:20 Drug: NS 0.9% 1000 ml Route: IV; Rate: 1000 ml; Site: right antecubital; rb1 13:41 Follow up: IV Status: Completed infusion rb1 12:20 Drug: NS 0.9% 1000 ml Route: IV; Rate: 1000 ml; Site: right antecubital; rb1 13:41 Follow up: IV Status: Completed infusion rb1 13:20 Drug: fentaNYL (PF) 50 mcg Route: IVP; Site: right antecubital; rb1 13:35 Follow up: Response: No adverse reaction; Pain is decreased rb1 13:20 Drug: Zofran 4 mg Route: IVP; Site: right antecubital; rb1 13:35 Follow up: Response: No adverse reaction; Nausea is decreased rb1 13:41 Drug: METHERgine 0.2 mg Route: IM; Site: right deltoid; rb1 13:58 Follow up: Response: No adverse reaction rb1 15:14 Drug: Zofran 4 mg Route: IVP; Site: right antecubital; hb 15:30 Follow up: Response: No adverse reaction; Nausea is decreased rb1 15:14 Drug: fentaNYL (PF) 50 mcg Route: IVP; Site: right antecubital; hb 15:30 Follow up: Response: No adverse reaction; Pain is decreased rb1 Disposition: 17:42 Co-signature as Attending Physician, Eliud Lee MD. rn Disposition: 10/23/18 13:23 Hospitalization ordered by Elissa Chaudhary for Observation. Preliminary diagnosis is Abnormal uterine and vaginal bleeding, unspecified. - Bed requested for [facility]. - Status is Observation. hb - Condition is Fair. - Problem is new. - Symptoms are unchanged. UTI on Admission? No Signatures: Dispatcher [employer] EDMT Gina Briones, SUPPLY SERVICE WORKER-C SUPPLY SERVICE WORKER-Ckb Gail Leal RN RN Ambika Abdullahi ms, Roman, MD MD rn Barber, Rebecca, RN RN rb1 Antonia Felder RN RN hb Corrections: (The following items were deleted from the chart) 12:25 12:23 Constitutional: This is a well developed, well nourished patient who is awake, kb alert, and in no acute distress. Head/Face: Normocephalic, atraumatic. Neck: Trachea midline, no thyromegaly or masses palpated, and no cervical lymphadenopathy. Supple, full range of motion without nuchal rigidity, or vertebral point tenderness. No Meningismus. Chest/axilla: Normal chest wall appearance and motion. Nontender with no deformity. No lesions are appreciated. Cardiovascular: Regular rate and rhythm with a normal S1 and S2. No gallops, murmurs, or rubs. Normal PMI, no JVD. No pulse deficits. Respiratory: Lungs have equal breath sounds bilaterally, clear to auscultation and percussion. No rales, rhonchi or wheezes noted. No increased work of breathing, no retractions or nasal flaring. Abdomen/GI: Soft, non-tender, with normal bowel sounds. No distension or tympany. No guarding or rebound. No evidence of tenderness throughout. Skin: Warm, dry with normal turgor. Normal color with no rashes, no lesions, and no evidence of cellulitis. MS/ Extremity: Pulses equal, no cyanosis. Neurovascular intact. Full, normal range of motion. Neuro: Awake and alert, GCS 15, oriented to person, place, time, and situation. Cranial nerves II-XII grossly intact. Motor strength 5/5 in all extremities. Sensory grossly intact. Cerebellar exam normal. Normal gait. kb 13:20 13:17 Physician consultation: Elissa saucedo kb 13:23 12:44 Counseling: I had a detailed discussion with the patient and/or guardian lewis regarding: the historical points, exam findings, and any diagnostic results supporting the discharge/admit diagnosis, lab results, the need for further work-up and treatment in the hospital, kb 13:32 13:23 Hospitalization Ordered by Elissa Chaudhary MD for Observation. Preliminary diagnosis kb is Abnormal uterine and vaginal bleeding, unspecified. Bed requested for Telemetry/MedSurg (observation). Status is Observation. Condition is Fair. Problem is new. Symptoms are unchanged. UTI on Admission? No. kb 14:57 13:32 10/23/2018 13:23 Hospitalization Ordered by Elissa Chaudhary MD for Observation. ms Preliminary diagnosis is Abnormal uterine and vaginal bleeding, unspecified. Bed requested for [facility]. Status is Observation. Condition is Fair. Problem is new. Symptoms are unchanged. UTI on Admission? No. kb 16:05 14:57 10/23/2018 13:23 Hospitalization Ordered by Elissa Chaudhary MD for Observation. hb Preliminary diagnosis is Abnormal uterine and vaginal bleeding, unspecified. Bed requested for [facility]. Status is Observation. Condition is Fair. Problem is new. Symptoms are unchanged. UTI on Admission? No. ms
[2018-10-23] MEDS ORDERED: METHYLERGONOVINE 0.2MG/ML AMP IM ONE (13:44)
--- NOTE | 2018-10-23 15:01 | RAD REPORT ---
EXAM DESCRIPTION: US - Transvaginal Study Probe - 10/23/2018 2:45 pm CLINICAL HISTORY: Status post section October 12, 2018 with vaginal bleeding COMPARISON: none FINDINGS: The uterus measures 19 x 8 x 8cm. The endometrial stripe is not well delineated but does a ppear thickened and heterogeneous measuring approximately 4.8 centimeters. . Neither ovary was seen. An adnexal mass is not displayed. No significant free fluid is seen. IMPRESSION: Thickened endometrium. This is nonspecific in a patient and could indicate bl ood, infection or even retained placenta. This all should be correlated clinically. If the vaginal bl eeding persists MRI may be helpful
[2018-10-23] MEDS ORDERED: NA CHLORIDE 0.9% 1,000 ML ONE (15:32)
[2018-10-23] MEDS ORDERED: IBUPROFEN 200 MG TAB PO PRN (15:37)
[2018-10-23] MEDS ORDERED: NA CHLORIDE 0.9% 1,000 ML IV SCH (15:37)
[2018-10-23 15:43] LABS: Hematocrit 26.7 % (36.0-45.0)
[2018-10-23] MEDS ORDERED: KETOROLAC 30 MG/ML INJ IV PRN (15:56)
[2018-10-23] MEDS: ACETAMINOPHEN 500 MG TAB PO PRN (16:00)
[2018-10-23] MEDS ORDERED: MEDROXYPROGEST ACET 150 MG/ML IM SCH (16:00)
--- NOTE | 2018-10-23 16:13 | P.OBGYNHP ---
Certification for Inpatient Patient admitted to: Observation With expected LOS: <2 Midnights Patient will require the following post-hospital care: None Practitioner: I am a practitioner with admitting privileges, knowledge of patient current condition, hospital course, and medical plan of care. Services: Services provided to patient in accordance with Admission requirements found in Title 42 Section 412.3 of the Code of Federal Regulations Patient History Date of Service: 10/23/18 Reason for admission: BLEEDING History of Present Illness: Patient is a 33 y/o female who presents with heavy vaginal bleeding. She delivered on 10/12/18 and then followed up in the office 1 week later. She has been doing well and then today she began to have heavy vaginal bleeding. She states she was taking a shower and began to feel weak and started to pass blood clots vaginally. Her care was complicated by IVF , antiphospholipid syndrome and velamentous cord insertion. She was induced due to [facility] recommendation. She then had a section performed due to arrest of labor. She was instructed by [facility] to restart baby aspirin in the period. This may have triggered her vaginal bleeding. She is trying to breast feed but is not getting much milk. Allergies No Known Allergies Allergy (Verified 10/23/18 15:46) Home Medications: Enoxaparin Sodium [Lovenox 40 MG INJ*] 40 mg SQ DAILY 10/12/18 Pnv72/Iron,Carb&Glu/FA/Dss/Dha [Citranatal 90 Dha Combo Pack] 1 tab-cap PO DAILY 10/12/18 Codeine/APAP [Tylenol W/Codeine #3 tab] 1 tab PO Q6HP PRN #24 tab 10/13/18 - Past Medical/Surgical History Diabetic: No -: Antiphospholipid antibody syndrome -: hysteroscopy 11/2016 -: egg retrieval 01/2017, 09/2017 -: section 09/2018 - Family History Family History: Reviewed- Non-Contributory - Family History Mother -: Hypertension Father -: Hypertension - Social History Alcohol use: No CD- Drugs: No Caffeine use: No Review of Systems 10-point ROS is otherwise unremarkable Physical Examination - Vital Signs Temperature: 97.8 F Blood Pressure: 114/83 Pulse: 97 Respirations: 20 Pulse Ox (%): 100 - General General: Alert, Oriented x3, Mild distress HEENT: Atraumatic Neck: Supple Respiratory: Normal air movement Cardiovascular: No edema, Normal pulses Breasts: Normal configuration, Normal contours Gastrointestinal: Soft and benign (incision clean, dry and intact) Musculoskeletal: No clubbing, No swelling Integumentary: No rashes, No breakdown Neurological: Normal gait, Normal speech - Female Pelvic External genitalia: Normal Vagina: [place], Moist, Other (extensive amount of blood clots found in the vagina extracted from the vagina) Cervix: Dilation (1-2 cm dilated and blood clots in the cervix) Uterus: Non-gravid, Smooth contour Adnexa: Normal, Non-palpable Laboratory Data (last 24 hrs) 10/23/18 11:57: Sodium 141, Potassium 3.7, BUN 18, Creatinine 1.01, Glucose 108 H 10/23/18 11:57: WBC 9.6 D, Hgb 10.7 L, Hct 33.2 L D, Plt Count 373 D Selected Entries 10/23/18 10/23/18 11:37 12:08 Temperature 97.8 F Pulse Rate 97 H 80 Respiratory 20 Rate Blood Pressure 114/83 93/77 O2 Sat by Pulse 98 100 Oximetry Laboratory Tests 10/23/18 10/23/18 11:57 15:30 WBC 9.6 D Hgb 10.7 L 8.5 L Hct 33.2 L D 26.7 L D Plt Count 373 D Imagings Data: Name: GAVINO DUFF Acct Number: [id number] : 1985 Age: 33 Sex: F Unit Number: [id number] Ord Phys: Gina Briones BLADE BONER Prim Care Dr: NONE Status: ADM IN [facility]- Exam Date: 10/23/18 Report Status: Signed EXAM DESCRIPTION: US - Transvaginal Study Probe - 10/23/2018 2:45 pm CLINICAL HISTORY: Status post section October 12, 2018 with vaginal bleeding COMPARISON: none FINDINGS: The uterus measures 19 x 8 x 8cm. The endometrial stripe is not well delineated but does appear thickened and heterogeneous measuring approximately 4.8 centimeters. . Neither ovary was seen. An adnexal mass is not displayed. No significant free fluid is seen. IMPRESSION: Thickened endometrium. This is nonspecific in a patient and could indicate blood, infection or even retained placenta. This all should be correlated clinically. If the vaginal bleeding persists MRI may be helpful Dictated By: Andrea Ferguson MD 10/23/18 1501 Signed By: Andrea Ferguson MD 10/23/18 1501 Assessment and Plan - Plan 33 y/o s/p primary section on 10/12/18 who pnow presents with excess vaginal bleeding leading to anemia and hypotension. Patient's care complicated by antiphospholipid antibody syndrome. Patient will be kept for observation. Depo-provera and methergine given to control bleeding. If needed blood transfusion will be performed. Regular diet. Ambulate. Discontinue baby aspirin. Serial CBCs. Pain management. Activity as tolerated. Plan to discharge in: 24 Hours - Advance Directives Does patient have a Living Will: Yes Does patient have a Durable POA for Healthcare: No
[2018-10-23 16:15] VITALS: O2SAT 100
[2018-10-23 16:33] VITALS: BMI 28.1
[2018-10-23] MEDS ORDERED: ONDANSETRON 4 MG (ODT) TAB PO PRN (16:35)
[2018-10-23] MEDS: PRENATAL VITAMIN PO SCH (18:00)
[2018-10-23] MEDS: METHYLERGONOVINE 0.2 MG TAB PO PRN (19:48)
[2018-10-23] MEDS: FERROUS SULFATE 325 MG TAB PO SCH (20:57)
[2018-10-23 21:39] LABS: Hematocrit 22.3 % (36.0-45.0)
[2018-10-24] MEDS: METHYLERGONOVINE 0.2 MG TAB PO PRN (02:03)
[2018-10-24 06:50] LABS: BUN Blood Urea Nitrogen 9 mg/dL (7-18); Bicarbonate 23 mmol/L (21-32); Glucose Level 111 mg/dL (74-106); Potassium 3.5 mmol/L (3.5-5.1); Sodium Level 145 mmol/L (136-145)
[2018-10-24 06:52] LABS: Absolute Lymphocytes (CBC) 1.7 K/uL (0.7-4.9); Absolute Monocytes 0.4 K/uL (0.1-1.3); Absolute Neutrophil 4.6 K/uL (1.8-8.0); Basophils % 0.4 % (0-1.3); Eosinophils % 1.9 % (0-4.4); Hematocrit 18.7 % (36.0-45.0); Lymphocytes % 24.4 % (15.3-44.8); MPV 8.8 fL (7.6-11.3); Monocytes % 6.4 % (3.3-12.3); RBC Red Blood Cell Count 2.23 M/uL (3.86-4.86)
[2018-10-24] MEDS: ACETAMINOPHEN 500 MG TAB PO PRN (07:57)
[2018-10-24] MEDS: FERROUS SULFATE 325 MG TAB PO SCH (07:58)
[2018-10-24] MEDS: PRENATAL VITAMIN PO SCH (07:58)
[2018-10-24 15:01] VITALS: BP 100/62; TEMP 96.8
[2018-10-24 15:48] LABS: Hematocrit 28.3 % (36.0-45.0)
--- NOTE | 2018-10-24 17:07 | P.DS ---
Admission Date: 10/23/18 Discharge Date: 10/24/18 Disposition: ROUTINE DISCHARGE Discharge Condition: GOOD Reason for Admission: BLEEDING Brief History of Present Illness: Patient is a 33 y/o female who presents with heavy vaginal bleeding. She delivered on 10/12/18 and then followed up in the office 1 week later. She has been doing well and then today she began to have heavy vaginal bleeding. She states she was taking a shower and began to feel weak and started to pass blood clots vaginally. Her care was complicated by IVF , antiphospholipid syndrome and velamentous cord insertion. She was induced due to [facility] recommendation. She then had a section performed due to arrest of labor. She was instructed by [facility] to restart baby aspirin in the period. This may have triggered her vaginal bleeding. She is trying to breast feed but is not getting much milk. Vital Signs/Physical Exam: Temp Pulse Resp BP Pulse Ox 96.8 F 84 18 100/62 100 10/24/18 15:00 10/24/18 15:00 10/24/18 15:00 10/24/18 15:00 10/24/18 07:30 Laboratory Data at Discharge: WBC 6.9 K/uL (4.3-10.9) D 10/24/18 05:59 Hgb 9.4 g/dL (12.0-15.0) L D 10/24/18 15:36 Hct 28.3 % (36.0-45.0) L D 10/24/18 15:36 Plt Count 213 K/uL (152-406) D 10/24/18 05:59 Sodium 145 mmol/L (136-145) 10/24/18 05:59 Potassium 3.5 mmol/L (3.5-5.1) 10/24/18 05:59 BUN 9 mg/dL (7-18) 10/24/18 05:59 Creatinine 0.73 mg/dL (0.55-1.3) 10/24/18 05:59 Glucose 111 mg/dL (74-106) H 10/24/18 05:59 Home Medications: Pnv72/Iron,Carb&Glu/FA/Dss/Dha [Citranatal 90 Dha Combo Pack] 1 tab-cap PO DAILY 10/12/18 Aspirin [Aspirin EC 81 MG] 81 mg PO DAILY 10/23/18 Ferrous Sulfate [Iron] 65 mg PO DAILY 10/23/18 Followup: Darryl Chaudhary DO [ACTIVE - CAN ADMIT] -
== END 2018-10-24 16:45 | disposition home or self-care (01) ==
LOC: ER 11:30 → ERHOLD 13:26 → 2ND-WC 15:15
PROVIDERS: ADMIT Student in an Organized Health Care Education/Training Program; ATTEND Student in an Organized Health Care Education/Training Program
PROC: 30233N1 Transfusion of Nonautologous Red Blood Cells into Peripheral Vein, Percutaneous Approach (ICD-10-PCS; principal; 2018-10-24)
DX: O72.1 Other immediate postpartum hemorrhage (principal); O72.3 Postpartum coagulation defects; I95.9 Hypotension, unspecified; O90.81 Anemia of the puerperium
CPT/HCPCS: 36415; 36430; 76830; 80048; 85014; 85018; 85025; 86850; 86900; 86901; 96361; 96372; 96374; 96375; 99285; G0378; J1050; J2210; J2405; J3010; J7030; P9016; P9040